=== PATIENT | female | born 2000 | race Two or more races ===

== ENCOUNTER 2025-03-06 02:20 | Emergency (ER) | payer MEDICAID, SELFPAY ==
[2025-03-06 02:22] VITALS: BMI 24.7
--- NOTE | 2025-03-06 02:24 | EKG_ITS ---
[facility] Test Date: 2025-03-06 Pat Name: JASKARAN DIAMOND Department: Room: - Gender: Female Commissioned Security Officer: : 2000 Requested By: Marcia Botello Order Number: [id number] Reading MD: Marcia Botello Measurements Intervals [place] Rate: P: OK: QRS: QRSD: T: QT: QTc: Interpretive Statements NO FURTHER INTERPRETATION POSSIBLE ATYPICAL ECG WARNING: DATA QUALITY MAY AFFECT INTERPRETATION No previous ECG available for comparison /[id number]
[2025-03-06 02:35] VITALS: BP 156/96; PULSE 106; RESP 19; TEMP 37.4; O2SAT 99
[2025-03-06 02:48] LABS: Basophils # (Auto) 0.1 Thou/mm3 (0.0-0.2); Basophils % (Auto) 1 % (0-2.5); Eosinophils % (Auto) 0 % (0-10); Hematocrit 38.1 % (36.0-46.0); Hemoglobin 13.2 g/dL (12.0-16.0); Immature Granulocytes % (Auto) 0 % (0-0); Immature Granulocytes Auto 0.03 Thou/mm3 (0.00-0.00); Lymphocytes # (Auto) 1.3 Thou/mm3 (1.0-4.8); Lymphocytes % (Auto) 11 % (10-50); Mean Corpuscular HGB Conc 34.6 g/dl (31.0-37.0); Mean Corpuscular Hemoglobin 27.2 pg (25.0-35.0); Mean Corpuscular Volume 79 fL (80-100); Monocytes # (Auto) 1.1 Thou/mm3 (0.0-0.8); Monocytes % (Auto) 9 % (0-12); Neutrophils # (Auto) 9.2 Thou/mm3 (1.8-7.7); Neutrophils % (Auto) 79 % (37-80); Nucleated Red Blood Cell % 0 /100 WBC (0); Platelet Count 200 Thou/mm3 (140-440); Red Blood Count 4.85 Miln/mm3 (4.00-5.20); White Blood Count 11.7 Thou/mm3 (3.6-11.0)
--- NOTE | 2025-03-06 02:50 | XR_ITS ---
Examination: PA chest single view TECHNIQUE: Upright PA chest single view Date and time: March 06, 2025, 0255 hours INDICATIONS: Chest pain today FINDINGS: Normal heart size. The lungs are clear. The osseous structures are intact IMPRESSION: No active disease
[2025-03-06 03:05] LABS: B-Type Natriuretic Peptide < 20 pg/mL (0-100)
[2025-03-06 03:08] LABS: Alanine Aminotransferase 14 U/L (10-49); Albumin, Serum 5.1 gm/dL (3.5-5.0); Albumin/Globulin Ratio 2.2 (1.2-2.2); Alkaline Phosphatase 66 U/L (46-116); Anion Gap 11 (7-16); Aspartate Amino Transferase 19 U/L (0-34); BUN/Creatinine Ratio 13 Ratio (12-20); Bilirubin,Total 0.4 mg/dL (0.3-1.2); Blood Urea Nitrogen 10 mg/dL (9-23); Calcium 9.4 mg/dL (8.3-10.6); Calcium (Corrected) 9.4 mg/dL (8.5-10.1); Carbon Dioxide 23.7 mMol/L (20.0-31.0); Chloride 105 mMol/L (98-107); Creatinine (Component) 0.8 mg/dL (0.6-1.3); Estimated Creatinine Clearance 91.8 mL/min (>60); Globulin 2.3 gm/dL (2.3-3.5); Glucose 124 mg/dL (74-106); Osmolality,Calculated 279 (275-295); Potassium 4.1 mMol/L (3.4-5.1); Sodium 140 mMol/L (136-145); Total Protein 7.4 gm/dL (5.7-8.2); Troponin I < 0.002 ng/mL (0.0-0.045); eGFR > 60 See Note
--- NOTE | 2025-03-06 03:22 | PD.EDCHEST ---
ED Chest Pain RME/HPI General Chief Complaint: Chest Pain Stated Complaint: CHEST PAIN Time Seen by Provider: 03/06/25 02:48 Arrival date/time: 03/06/25 02:20 This is a case of 24-year-old female who came in in the emergency room due to midsternal chest pain for 2 days no associated symptoms no shortness of breath no palpitation due to persistence of the symptoms this patient decided to start consult here in the emergency room denies any injury or trauma denies abdominal Limitations: no limitations Related Data Previous Rx's ?Medication ?Instructions ?Recorded ibuprofen 600 mg tablet 600 mg PO Q8H PRN pain #20 tabs 03/06/25 Allergies Allergy/AdvReac Type Severity Reaction Status Date / Time No Known Allergies Allergy Verified 03/06/25 02:30 Review of Systems Review of Systems Systems Reviewed: All systems reviewed, normal except as documented Constitutional Constitutional: Reports system reviewed and no additional complaints, except as documented Cardiovascular Cardiovascular: Reports system reviewed and no additional complaints, except as documented, Reports chest pain, Denies chest pain at rest, Denies chest pain with activity and Denies dyspnea Respiratory Respiratory: Reports system reviewed and no additional complaints, except as documented and Denies dyspnea Gastrointestinal Gastrointestinal: Reports system reviewed and no additional complaints, except as documented Musculoskeletal Musculoskeletal: Reports system reviewed and no additional complaints, except as documented Neurologic Neurologic: Reports system reviewed and no additional complaints, except as documented Past Medical History Social History SMOKING STATUS: Never smoker ED Exam General Limitations: Present no limitations General appearance: Present alert and in no apparent distress Head Head exam: Present atraumatic Eye Eye exam: Present normal appearance, PERRL and EOMI ENT ENT exam: Present normal exam, normal oropharynx and mucous membranes moist Neck Neck exam: Present normal inspection, full ROM and trachea midline; Absent tenderness or meningismus Chest Chest inspection: Present normal inspection and symmetric chest wall rise; Absent tenderness or rash Respiratory Respiratory exam: Present normal lung sounds bilaterally; Absent respiratory distress, wheezes, stridor, accessory muscle use or prolonged expiratory phase Cardiovascular Cardiovascular exam: Present regular rate, normal rhythm and normal heart sounds; Absent bradycardia, tachycardia, irregular rhythm, systolic murmur or diastolic murmur Abdominal Exam Abdominal exam: Present soft and normal bowel sounds Extremities Exam Extremities exam: Present normal inspection and full ROM Back Exam Back exam: Present normal inspection and full ROM Neurological Exam Neurological exam: Present alert, oriented X3, CN II-XII intact, normal gait and reflexes normal; Absent motor sensory deficit Psychiatric Psychiatric exam: Present normal affect and normal mood Skin Skin exam: Present warm, dry, intact and normal color Course Quality Measures none Orders Category Date Time Status EKG (ED ONLY) *Do not use* NOW Care 03/06/25 02:24 Completed EKG (ED Only) Stat Exams 03/06/25 02:24 Draft XR chest 1V portable Stat Exams 03/06/25 02:50 Taken BNP [B-Type Natriuretic Peptide] Stat Lab 03/06/25 02:39 Completed CBC Stat Lab 03/06/25 02:39 Completed CMP [Comprehensive Metabolic Panel] Stat Lab 03/06/25 02:39 Completed Troponin I Stat Lab 03/06/25 02:39 Completed Ibuprofen Tab [Motrin Tab] Med 03/06/25 03:16 Discontinued 600 mg PO X1 ONE Vital Signs Vital signs: Vital Signs Temperature 99.4 F 03/06/25 02:35 Pulse Rate 106 H 03/06/25 02:35 Respiratory Rate 19 03/06/25 02:35 Blood Pressure 156/96 H 03/06/25 02:35 Pulse Oximetry (%) 99 03/06/25 02:35 Oxygen Delivery Method Room Air 03/06/25 02:35 Oxygen saturation is 99% in room air BP stable Chest Pain MDM Narrative MDM Narrative:: This is a case of 24-year-old female who came in in the emergency room due to midsternal chest pain for 2 days no associated symptoms no shortness of breath no palpitation due to persistence of the symptoms this patient decided to start consult here in the emergency room denies any injury or trauma denies abdominal patient is awake alert oriented not in distress nontoxic looking vital signs stable BP stable not tachycardic not tachypneic afebrile and nonhypoxic no signs and symptoms of any cardiopulmonary pathology patient has no medical history patient lung sound is clear no crackles no rales no retraction no stridor heart normal rate regular rhythm no murmur patient EKG showed sinus rhythm no ST or Q wave abnormality chest x-ray is also normal patient troponin is negative BNP is normal CBC no leukocytosis no anemia CMP no electrolyte imbalance kidney and liver function is normal at this point patient will be discharged as a chest pain possible costochondritis he will follow-up with primary care physician to be referred to [facility] for possible echocardiogram stress test and Holter monitor patient was given Motrin pain was resolved for any recurrence worsening symptoms or any emergent concern she is well-informed return in the emergency room immediately or call 911 Patient data External records reviewed:: [facility] previous records Clinical information provided by:: patient Social determinants that could affect healthcare access:: none Patient has the following chronic illnesses:: None How is presenting disease/condition affected by chronic disease/condition?: no chronic disease Evaluation data The following diagnostics were reviewed and interpreted by me:: lab results and radiology exam(s) Lab and/or radiology exams considered but not ordered:: Reviewed Interpretation Summary: Normal Medications / Prescriptions Medications or Prescriptions considered but not ordered:: Given Medication administrations:: Medication Administration History Discontinued Medications Ibuprofen (Ibuprofen Tab 600 Mg Tablet) 600 mg PO X1 ONE Stop: 03/06/25 03:17 Given Consultations Consultation(s) initiated? (list below): No Diagnosis Chest Pain Differential Diagnosis: atypical chest pain Most likely diagnosis given after review of the tests above:: Costochondritis Admission Indicated Admission indicated?: not indicated Explain why admission is indicated or not indicated:: Not indicated Admission Request Was there a request for admission?: No Admission Attestation Admission request attestation: Not indicated Disposition Plan Disposition Plan: Discharge Discharge Attestation Discharge Attestation: The patient and all family members were given an opportunity to ask questions and understood the discharge instructions. Discharge instructions specifically effects, indications for sooner follow up or return to the emergency department, and the expected course of current diagnosis. Patient condition: Stable Discharge Plan Plan Patient Disposition: HOME (Self Care) Patient condition on transfer: Stable Prescriptions/Referrals Prescriptions/Med Rec: New ibuprofen 600 mg tablet 600 mg PO Q8H PRN (Reason: pain) Qty: 20 0RF Referrals: No Primary/Family,Physician [Primary Care Provider] - In 1 week Problem List Clinical Impression: Chest pain of unknown etiology, Costochondritis Patient/Caregiver Discharge Instructions Education Materials: Costochondritis, ED Chest Pain, Noncardiac Additional Instructions: Follow-up with your primary care physician in 2 days for reevaluation and for any recurrence persistent worsening symptoms or any emergent concern return to the emergency room immediately or call 911 it is very important to return to your primary care physician to be referred to [facility] for further evaluation and treatment of chest pain providers avoid echocardiogram stress test and Holter monitor Print Language: Irish Stand Alone Forms: [employer] Award Info., Patient Portal Info Letter PA/RESTORATION SILVERSMITH Supervising Physician PA/RESTORATION SILVERSMITH Supervising Physician: dr dudley
[2025-03-06] MEDS: IBUPROFEN TAB 600 MG TABLET PO (03:43)
== END 2025-03-06 03:48 | disposition home or self-care (01) ==
PROVIDERS: Nurse Practitioner Family; Emergency Provider Emergency Medicine
DX: M94.0 Chondrocostal junction syndrome [Tietze] (principal)
CPT/HCPCS: 36415; 71045; 80053; 83880; 84484; 85025; 93005; 99283; A9270